=== PATIENT | female | born 1965 | race Caucasian/White ===

== ENCOUNTER 2022-08-12 14:18 | Outpatient (CLI) | payer BC, SELFPAY ==
--- NOTE | ~2022-08-12 | XR_ITS ---
EXAMINATION: XR hip RT min 2V DATE: 08/12/2022 14:37 INDICATION: Right knee pain. TECHNIQUE: 2 views of right hip were obtained. COMPARISON: None. FINDINGS: Bone alignment is normal. No fracture. Right hip joint space is normal. IMPRESSION: 1. Normal right hip. Reviewed, dictated and finalized at location A. IRER SASH AND DOOR IMPRESSION: 1. Normal right hip.
--- NOTE | ~2022-08-12 | XR_ITS ---
EXAMINATION: XR hip LT min 2V DATE: 08/12/2022 14:37 INDICATION: Left hip pain. TECHNIQUE: 2 views of left hip were obtained. COMPARISON: None. FINDINGS: Bone alignment is normal. No fracture. There is mild left hip osteoarthritis. IMPRESSION: 1. Mild left hip osteoarthritis. Reviewed, dictated and finalized at location A. X RAY EQUIPMENT MECHANIC
== END 2022-08-12 14:19 ==
PROVIDERS: PCP Physician Assistant; Visit Provider Physician Assistant
DX: M16.12 Unilateral primary osteoarthritis, left hip (principal); M25.551 Pain in right hip
CPT/HCPCS: 73502

== ENCOUNTER 2023-06-03 08:32 | Outpatient (CLI) | payer BC, SELFPAY ==
--- NOTE | ~2023-06-03 | MR_ITS ---
MRI of the lumbar spine Clinical History: Radiculopathy, postlaminectomy syndrome Technique: Axial T2-weighted images, and sagittal T1-weighted, T2-weighted, and T2 fat-sat images wer e acquired. Following intravenous administration of 12 cc MultiHance gadolinium, T1-weighted fat-sat imaging was performed in the axial and sagittal planes. COMPARISON: 05/29/2008 Findings: There is no fracture or subluxation of the lumbar spine. Vertebral bodies maintain normal h eight and alignment. No suspicious bone marrow signal abnormality is seen. There are mild reactive ma rrow signal changes due to underlying degenerative disc disease, particularly at the L5-S1 region. At L1-L2, there is mild disc bulge with mild facet hypertrophy. No central canal stenosis or neural f oraminal narrowing. At L2-L3, there is minimal disc bulge with mild facet hypertrophy. No central canal stenosis or neura l foraminal narrowing. L3-L4, there is no significant disc bulge or herniation. There is moderate facet hypertrophy. No cent ral canal stenosis or neural foraminal narrowing. At L4-L5, there is mild diffuse disc bulge with moderate to advanced facet arthropathy. No central ca nal stenosis. There is mild to moderate right neural foraminal narrowing. Left neural foramen preserv ed. At L5-S1, there is degenerative disc narrowing with minimal disc bulge and moderate facet arthropathy . No central canal stenosis. There is mild to moderate right neural foraminal narrowing. Left neural foramen preserved. Paravertebral soft tissues are unremarkable. No suspicious postcontrast enhancement identified. Impression: Minimal degenerative spondylosis, as above. Reviewed, dictated and finalized at location M. OGICAL ENGINEER Impression: Minimal degenerative spondylosis, as above.
== END 2023-06-03 08:33 | disposition home or self-care (01) ==
PROVIDERS: PCP Physician Assistant
DX: M96.1 Postlaminectomy syndrome, not elsewhere classified (principal); F11.20 Opioid dependence, uncomplicated; M47.27 Other spondylosis with radiculopathy, lumbosacral region; M47.26 Other spondylosis with radiculopathy, lumbar region; M70.61 Trochanteric bursitis, right hip
CPT/HCPCS: 72158; A9577

== ENCOUNTER 2023-06-07 11:31 | Emergency (ER) | payer BC, SELFPAY ==
[2023-06-07 11:54] VITALS: BP 134/77; PULSE 86; RESP 18; TEMP 36.5; O2SAT 99
[2023-06-07 14:00] VITALS: BP 130/79; PULSE 71; RESP 18; O2SAT 100
--- NOTE | 2023-06-07 14:09 | ED.EPISTAXIS ---
HPI - Epistaxis General Chief complaint: Epistaxis Stated complaint: Nosebleed Time Seen by Provider: 06/07/23 14:08 Source: patient Mode of arrival: ambulatory Limitations: no limitations History of Present Illness HPI Narrative: Elaina is a 58-year-old female patient presenting to the clinic today with complaints of bilateral epistaxis that began of 430 this morning. She reports that she has had a slight headache. Blood pressure is 134/77 with a heart rate of 86. Patient reports that she has been holding pressure and the being stop while she was in the waiting room today. She denies any history of anti coagulation issues. States she has had a lot of sinus pressure and congestion over the last week or 2. Related Data Allergies Allergy/AdvReac Type Severity Reaction Status Date / Time No Known Allergies Allergy Unverified 07/26/15 07:31 Review of Systems Review of Systems: Pertinent positives per HPI. Patient denies any fever, chills, rash, headache, visual changes, dizziness, cough, runny nose, sore throat, shortness of breath, chest pain, palpitations, nausea, vomiting, diarrhea, constipation, abdominal pain, or any urinary issues. PMFSH Comments At the time of my signature, I reviewed and agree with the nursing past medical, surgical, social, and family history. There is no relevant family history pertinent to the patient complaint. Exam Narrative: General: Well-developed, well nourished, in no apparent distress Head: Normocephalic, atraumatic Eyes: Pupils equally round and reactive to light bilaterally, EOM intact, sclera and conjunctive clear, no discharge, lids normal Ears: TMs intact and clear, ear canals clear, no drainage, grossly hearing normal. Nose: Nares patent, dry blood in bilateral nares, moderate inflammation, no sinus tenderness. No active bleeding while in the ED Mouth: Oropharynx without lesions or masses, good dentition, MMM. Neck: Supple, trachea midline, no enlargement of anterior or posterior cervical nodes, no thyroid masses or goiter palpable. Cardio: Regular rate and rhythm, s1 and s2 normal, no murmur appreciated. Resp: Clear to auscultation bilaterally anteriorly and posteriorly, no rhonchi, rales, wheezing or rubs Course Course Emergency Course: Portions of this record may have been created with voice recognition software. Vital Signs Vital signs: Vital Signs Temperature 36.5 C 06/07/23 11:54 Pulse Rate 86 06/07/23 11:54 Respiratory Rate 18 06/07/23 11:54 Blood Pressure 134/77 06/07/23 11:54 Pulse Oximetry 99 06/07/23 11:54 Temperature 36.5 C 06/07/23 11:54 Pulse Rate 71 06/07/23 14:00 Respiratory Rate 18 06/07/23 14:00 Blood Pressure 130/79 06/07/23 14:00 Pulse Oximetry 100 06/07/23 14:00 Vital signs reviewed MDM - Epistaxis MDM Narrative Medical decision making narrative: At the time of visit patient is resting on the exam table. Bleeding has resolved since the patient has been in the ER waiting room. John synephrine spray was used to bilateral nares. Zofran 4 mg ODT was given for nausea. Supportive measures were discussed with the patient she voiced understanding the discharge instructions and agrees to treatment plan. Return precautions reviewed Differential Diagnosis Differential diagnosis: Likely anterior epistaxis, posterior epistaxis and other (Sinus infection) Discharge Plan Discharge Clinical Impression: Epistaxis Patient Disposition: Home, Self-Care Condition: Stable Instructions: Antibiotic Form, Nosebleed (ED) Additional Instructions: John-Synephrine 1 sprain each nare was given in the ER May take Tylenol as needed for pain Avoid taking Motrin, Advil, or aspirin for the next 24 hours If bleeding restarts apply pressure to nares just below the nasal bridge for 15-20 If bleeding continues after the 15-20 minutes recommend coming into the ER for evaluation Use a cool-mist humidifier at th
[2023-06-07] MEDS: PHENYLEPHRINE 1% NA SPR (*BKC) 15 ML BTL 1 SPRAY NASAL (15:04)
[2023-06-07] MEDS: ONDANSETRON HCL ODT 4 MG TABLET PO (15:04)
[2023-06-07 15:43] VITALS: BP 128/86; PULSE 75; RESP 16; O2SAT 99
== END 2023-06-07 15:44 | disposition home or self-care (01) ==
PROVIDERS: Emergency Provider Nurse Practitioner Family; PCP Physician Assistant
DX: R04.0 Epistaxis (principal)
CPT/HCPCS: 99283; A9270

== ENCOUNTER 2023-08-19 00:34 | Day surgery (SDC) | payer BC, SELFPAY ==
[2023-08-03 15:15] VITALS: BMI 26.4
--- NOTE | 2023-08-17 11:22 | SUR.PREOP ---
Patient called regarding upcoming procedure. Voicemail left regarding appointment times.
--- NOTE | 2023-08-18 14:21 | PM.HPGS ---
History of Present Illness History of Present Illness Consent: Risks, benefits, and alternatives have been discussed and questions answered. Patient agrees to proceed with procedure. Chief complaint: Iron deficiency anemia unspecified Narrative: Elaina Nguyen is a 58 year old female Referred for investigation of iron deficiency anemia. Hemoglobin is 10.1 hematocrit 31. Iron and ferritin levels are low. her last colonoscopy was in 2016. She had a small polyp removed at that time. Also she has a family history of colon cancer in her father. Review of Systems Review of Systems: All systems reviewed & are unremarkable except as noted in HPI and below PMFSH Social History Social History Smoking status: Never smoker Alcohol use details: occasional Substance use type: does not use Living arrangements: with family Spiritual care concerns: No Meds Home Medications and Allergies Home Medications Medication Instructions Recorded Confirmed Type ascorbic acid (vitamin C) 500 mg 500 mg PO DAILY 08/03/23 08/19/23 History capsule duloxetine 60 mg capsule,delayed 60 mg PO BID 08/03/23 08/19/23 History release meloxicam 15 mg tablet 15 mg PO DAILY 08/03/23 08/19/23 History multivitamin with minerals-folic 1 tablet PO DAILY 08/03/23 08/19/23 History acid 0.4 mg tablet oxycodone-acetaminophen 7.5 mg-325 1 tablet PO TID PRN Pain 08/03/23 08/19/23 History mg tablet sodium,potassium,mag sulfates 17.5 See Rx Instructions PO .COMPLEX 08/03/23 08/19/23 Rx gram-3.13 gram-1.6 gram oral soln #354 mL (Suprep Bowel Prep Kit) Allergies Allergy/AdvReac Type Severity Reaction Status Date / Time No Known Allergies Allergy Verified 08/19/23 09:26 Exam Const: General: alert Orientation/consciousness: patient oriented x3 Resp: Auscultation: clear to auscultation bilaterally Cardio: Rhythm: regular rhythm GI: GI Palp: Yes Soft to palpation and No Tenderness to palpation present (GI) Neuro: General: patient oriented x3 Assessment and Plan Assessment and plan (1) Iron deficiency anemia: Code(s): D50.9 - Iron deficiency anemia, unspecified Status: Acute Assessment and Plan: EGD with possible biopsy or dilatation or cautery. Colonoscopy with possible biopsy or polypectomy or cautery or injection of substances.
[2023-08-19 09:29] VITALS: BP 170/66; PULSE 76; RESP 16; TEMP 36.4; O2SAT 97
[2023-08-19] MEDS: LACTATED RINGERS 1,000 ML 150 ML IV CONT (09:38)
--- NOTE | 2023-08-19 10:07 | P.PNAN_ITS ---
Anes - Initial Pre Proc Eval Procedure: Operation Date: 08/19/23 10:30 Proposed Procedures p Esophagogastroduodenoscopy & Colonoscopy - Randal Alston MD Date/Time: 08/19/23 10:07 Surgeon: Randal Alston MD Pre Op Diagnosis: Iron deficiency anemia unspecified Patient Data Age: 58 Gender: F Height: 1.52 m Weight: 59.8 kg Last Vital Signs Temp 97.6 F 08/19/23 09:29 Pulse 76 08/19/23 09:29 Resp 16 08/19/23 09:29 BP 170/66 H 08/19/23 09:29 Pulse Ox 97 08/19/23 09:29 O2 Del Method Room Air 08/19/23 09:29 Allergies Allergy/AdvReac Type Severity Reaction Status Date / Time No Known Allergies Allergy Verified 08/19/23 09:26 Home Medications Medication Instructions Recorded Confirmed Type ascorbic acid (vitamin C) 500 mg 500 mg PO DAILY 08/03/23 08/19/23 History capsule duloxetine 60 mg capsule,delayed 60 mg PO BID 08/03/23 08/19/23 History release meloxicam 15 mg tablet 15 mg PO DAILY 08/03/23 08/19/23 History multivitamin with minerals-folic 1 tablet PO DAILY 08/03/23 08/19/23 History acid 0.4 mg tablet oxycodone-acetaminophen 7.5 mg-325 1 tablet PO TID PRN Pain 08/03/23 08/19/23 History mg tablet sodium,potassium,mag sulfates 17.5 See Rx Instructions PO .COMPLEX 08/03/23 08/19/23 Rx gram-3.13 gram-1.6 gram oral soln #354 mL (Suprep Bowel Prep Kit) Patient hx anesthesia problems: none Family hx anesthesia problems: none Results Review: All pre-operative results and documents have been reviewed as part of the pre- operative evaluation. [facility] Social History Social History Smoking status: Never smoker Alcohol use details: occasional Substance use type: does not use Living arrangements: with family Spiritual care concerns: No Anes - Eval Final PreProcedure Day of Procedure 08/19/23 10:07 Patient weight: normal Heart: regular rate and rhythm Lungs: clear to auscultation Airway: Mallampati scale class II Neurological: alert and oriented Last oral intake: >/= 8 hours ASA classification: II Emergent: no Anesthetic plan: proceed Anesthesia type and monitoring: general GIVS and standard monitoring Results Review: All pre-operative results and documents have been reviewed as part of the pre- operative evaluation. Informed Consent: The patient's anesthetic plan and its attendant risks and benefits were discussed with the patient/family/POA. Questions were solicited and answers provided to the satisfaction of the patient/family/POA.
--- NOTE | 2023-08-19 10:45 | SUR.OPER ---
EGD START 1021, END 1025 COLONOSCOPY START 1030, END 1043
[2023-08-19 10:47] VITALS: BP 136/73; PULSE 55; RESP 38; O2SAT 100
[2023-08-19 10:57] VITALS: BP 129/65; PULSE 58; RESP 24; O2SAT 100
[2023-08-19 11:07] VITALS: BP 129/56; PULSE 59; RESP 22; O2SAT 100
== END 2023-08-19 11:10 | disposition home or self-care (01) ==
PROVIDERS: PCP Physician Assistant; Visit Provider Internal Medicine Gastroenterology
PROC: 0DJ08ZZ Inspection of Upper Intestinal Tract, Via Natural or Artificial Opening Endoscopic (ICD-10-PCS; CPT 43235; principal; 2023-08-19 10:30)
DX: D50.9 Iron deficiency anemia, unspecified (principal); Z80.0 Family history of malignant neoplasm of digestive organs; Z86.010 Personal history of colon polyps
CPT/HCPCS: 45378; 43239; 88305; J2704; J7120

== ENCOUNTER 2024-06-09 16:13 | Outpatient (CLI) | payer BC, SELFPAY ==
--- NOTE | ~2024-06-09 | CT_ITS ---
EXAMINATION: CT sinus wo con DATE: 06/09/2024 16:30 INDICATION: Chronic sinusitis. TECHNIQUE: Computed tomography (CT) of the paranasal sinuses was performed without intravenous contra st. Iterative reconstruction technique was employed. The dose-length product was 322.78 mGy-cm. COMPARISON: Head CT 05/23/2015 FINDINGS: The frontal, ethmoid, sphenoid, and left maxillary sinuses are clear. There is mild mucosal thickening right maxillary sinus. There is leftward deviation of the nasal septum. The ostiomeatal u nits are patent. There is a Lindsey cell on the left. IMPRESSION: 1. Mild mucosal thickening in right maxillary sinus. 2. Leftward deviation of the nasal septum. Reviewed, dictated and finalized at location A. SD ANALYST
== END 2024-06-09 16:14 | disposition home or self-care (01) ==
PROVIDERS: PCP Physician Assistant; Visit Provider Physician Assistant
DX: J31.0 Chronic rhinitis (principal); J34.2 Deviated nasal septum; J34.89 Other specified disorders of nose and nasal sinuses
CPT/HCPCS: 70486

== ENCOUNTER 2024-08-17 12:17 | Outpatient (CLI) | payer BC, SELFPAY ==
--- NOTE | ~2024-08-17 | MM_ITS ---
EXAMINATION: MM screening lesvia BI w mecca HISTORY: Screening TECHNIQUE: Craniocaudal and mediolateral oblique 3-D tomosynthesis images were obtained and synthetic 2-D images were generated. CAD analysis was submitted and interpreted. COMPARISON: Comparison to multiple prior studies sequentially, with oldest reviewed study dated 01/29. BREAST PARENCHYMAL COMPOSITION: Not dense: There are scattered areas of fibroglandular density. FINDINGS: There is no evidence of suspicious mass, calcification, or architectural distortion to sugg est malignancy in either breast. There has been no suspicious interval change. IMPRESSION: 1. No mammographic evidence of malignancy. 2. Recommend routine screening mammography in one year. BI-RADS Category 1: Negative Reviewed, dictated and finalized at location B. TARY TECHNOLOGY SPECIALIST
== END 2024-08-17 12:18 | disposition home or self-care (01) ==
LOC: MICIMG 12:18
PROVIDERS: PCP Physician Assistant; Visit Provider Physician Assistant
DX: Z12.31 Encounter for screening mammogram for malignant neoplasm of breast (principal)
CPT/HCPCS: 77063; 77067

== ENCOUNTER 2025-02-15 13:27 | Emergency (ER) | payer BC, SELFPAY ==
--- NOTE | ~2025-02-15 | CT_ITS ---
EXAMINATION: CT cervical spine wo con DATE: 02/15/2025 16:27 INDICATION: neck pain s/p fall TECHNIQUE: Computed tomography (CT) of the cervical spine was performed without intravenous contrast. Automated exposure control and iterative reconstruction technique were employed. The dose-length pro duct was 681.00 mGy-cm. COMPARISON: CT sinus 06/28. FINDINGS: Vertebral Body Alignment: Reversed lordosis centered at C5. Trace anterolistheses at C4-5 and C7-T1, presumably secondary to degenerative changes. Craniocervical and atlantoaxial alignment: Moderate degenerative change. Alignment intact. Osseous structures/fracture: No evidence of a lytic or blastic process in the visualized spine. No e vidence of acute fracture. Cervical soft tissues: The paraspinal soft tissues planes are maintained. Mild biapical pleural scarr ing. Degenerative changes: Multilevel degenerative disc disease and facet arthropathy. Severe right C5-6 n eural foraminal narrowing, secondary to degenerative changes. Severe bilateral C6-7 neural foraminal narrowing, secondary to degenerative changes. No severe central canal narrowing. IMPRESSION: No acute fracture or traumatic malalignment in the cervical spine. Reviewed, dictated and finalized at location K.
--- NOTE | ~2025-02-15 | CT_ITS ---
EXAMINATION: CT thoracic lumbar wo con DATE: 02/15/2025 16:31 CDT INDICATION: Fall. Back pain TECHNIQUE: Computed tomography (CT) of the lumbar spine and thoracic spine was performed without intr avenous contrast. The dose-length product was 681.00 mGy-cm. COMPARISON: None FINDINGS: Thoracic and lumbar vertebral body heights are within normal limits. No compression fracture identifi ed. Mild degenerative change scattered throughout the thoracic spine. Moderate joint space narrowing at the L5-S1 level. Mild levoconvex curvature of the lumbar spine. Reina luation of the spinal canal contents and bilateral neural foramen is limited due to CT technique. IMPRESSION: 1. No compression fracture identified in the thoracic or lumbar spine. 2. Mild degenerative change scattered throughout the thoracic spine. 3. Moderate joint space narrowing at L5-S1 level. Symptoms persist or worsen, consider an MRI for further assessment. Reviewed, dictated and finalized at location A.
--- NOTE | ~2025-02-15 | CT_ITS ---
EXAMINATION: CT brain wo con DATE: 02/15/2025 16:26 INDICATION: Fall. Pain. TECHNIQUE: Computed tomography (CT) of the head was performed 3 intravenous contrast. The dose-length product was 681.00 mGy-cm. COMPARISON: No prior studies for comparison. FINDINGS: Normal brain parenchymal volume for age. Normal fairchild-white differentiation. No acute intrac ranial hemorrhage, infarction, mass or mass effect. No ventriculomegaly or midline shift. Midline sagittal images demonstrate a normal corpus callosum, c raniovertebral junction and sella turcica. Basilar cisterns are patent. Paranasal sinuses and mastoids are pneumatized. No depressed skull fractures. IMPRESSION: 1. No acute intracranial abnormality. Reviewed, dictated and finalized at location A.
--- OUTSIDE RECORDS SUMMARY | 2025-02-15 13:30 | XMS_ITS | Encounter Summary ---
Author Organization [facility] Address [address] [place] [address] Care Team Providers Care Global Mobility Specialist Name Role Phone Unavailable Primary Care Provider Unavailabl e Encounter Details Date Type Department Care Team (Late st Contact Info) Description 12/11/2018 Abstract SFL CONVERSION [address] [place] [address] , Generic Conversion, Social History Tobacco Use Types Packs/Day Years Used Date Smoking Tobacco: Never Assessed Comments Unknown Sex and Gender Information Value Date Recorded Sex Assigned at Not on file Legal Sex Female 7:58 AM CDT Gender Identity Not on file Sexual Orientation Not on file documented as of this encounter Plan of Treatment Not on file documented as of this encounter Visit Diagnoses Not on filedocumented in this encounter
--- OUTSIDE RECORDS SUMMARY | 2025-02-15 13:30 | XMS_ITS | Encounter Summary ---
Author Organization [facility] Address [address] [place] [address] Care Team Providers Care Senior Ui Ux Designer Name Role Phone Fran Pathak MD Primary Care Provider Encounter Details Date Type Department Care Team (Latest Contact Info) Description 11/13/2008 Outpatient Historical [facility] Vicki Rosado MD NO ADDRESS ON FILE Displacement of Lumbar Intervertebral Disc without Myelopathy; Degeneration of Lumbar or Lumbosacral Intervertebral Disc Social History Tobacco Use Types Packs/Day Years Used Date Smoking Tobacco: Never Assessed Comments Unknown Sex and Gender Information Value Date Recorded Sex Assigned at Not on file Legal Sex Female 2:50 AM PRINCIPAL TRAINER Gender Identity Not on file Sexual Orientation Not on file documented as of this encounter Plan of Treatment Not on file documented as of this encounter Procedures Procedure Name Priority Date/Time Associated Diagnosis Comments XR LUMBAR SPINE 1 VW Routine 11/13/2008 10:55 AM CDT documented in this encounter Results * XR LUMBAR SPINE 1 VW (11/13/2008 10:55 AM CDT) Anatomical Region Laterality Modality Spine Other 11/13/2008 10:5 5 AM CDT Narrative 11/13/2008 11:41 AM CDT [address] [address] Admit Date: 11/13/2008 ELAINA NGUYEN Sex: F Admit Prov: VICKI ROSADO Date: 1965 Primary Care Prov: CMRN: [id number] [id number] Ordering Prov: N/A Accession Number: [id number] Interpretation Lumbar spine one view 11/13/2008. History: Lumbar disc displacement Findings: A single lateral view of the lumbar spine was obtained. Severe disc space narrowing at L5-S1 is visualized with mild facet hypertrophy. No acute fracture or subluxation is seen. Impression: Severe disc space narrowing at L5-S1. . Dictated by: JANE MALDONADO 11/13/2008 11:38 Electronically signed by: JANE MALDONADO 11/13/2008 11:39 Procedure Note Jane Johnson MD - 11/13/2008 [facility] [address], [place] [address] Admit Date: 11/13/2008 ELAINA NGUYEN Sex: F Admit Prov: VICKI ROSADO Date: 1965 Primary Care Prov: CMRN: [id number] [id number] [facility] Ordering Prov: N/A Interpretation Lumbar spine one view 11/13/2008. History: Lumbar disc displacement Findings: A single lateral view of the lumbar spine was obtained.Severe disc space narrowing at L5-S1 is visualized with mild facethypertrophy. No acute fracture or subluxation is seen. Impression: Severe disc space narrowing at L5-S1. . Dictated by: JANE MALDONADO 11/13/2008 11:38 Electronically signed by: JANE MALDONADO 11/13/2008 11:39 Vicki Rosado MD DIAGNOSTIC IMAGING ORDERABLES Final Result documented in this encounter Visit Diagnoses Diagnosis Displacement of lumbar intervertebral disc without myelopathy Degeneration of lumbar or lumbosacral intervertebral disc documented in this encounter Care Teams Senior Ui Ux Designer Relationship Specialty Start Date End Date Fran Pathak MD [address] [place] [address] [place] [address] PCP - General 09/10/09 documented as of this encounter
--- OUTSIDE RECORDS SUMMARY | 2025-02-15 13:30 | XMS_ITS | Clinical Summary ---
Author Organization [facility] Address [address] [place] [phone] Phone Care Team Providers Care Public Transportation Inspector Name Role Phone Fran Pathak MD Primary Care Provider Allergies No known active allergies Medications naproxen sodium (ALEVE) 220 mg Oral Tab Take 220 mg by mouth every 4 hours as needed. Active ibuprofen (MOTRIN) 600 mg Oral Tab Take 600 mg by mouth every 6 hours as needed for Pain. 1-2 tabs Active fexofenadine (LAITH) 60 mg Oral Tab Take 60 mg by mouth 1 time daily as needed. Active mometasone (NASONEX) 50 mcg/Actuation Both Nostril [place] Administer 2 Sprays in each nostril 1 time daily as needed. Active fluticasone (FLONASE) 50 mcg/Actuation Both Nostril SpSn Administer 2 Sprays in each nostril 1 time daily as needed. Active oxyCODONE-aceta minophen (PERCOCET) 7.5-325 mg Tablet TAKE 1 TABLET TWICE A DAY. 0 8 Active fentaNYL (DURAGESIC) 25 mcg/hr patch APPLY 1 PATCH TO SKIN EVERY 2ND DAY. 0 8 Active venlafaxine (EFFEXOR XR) 37.5 mg Extended Release 24 hour capsule 8 Active azithromycin (ZITHROMAX) 250 mg tablet 8 Active Active Problems Problem Noted Date Diagnosed Date Hematoma of breast 04/02/2018 Usual hyperplasia of lactiferous duct, right Duct ectasia of breast, right 03/23/2018 Abnormal mammogram of right breast 03/04/2018 Abnormal ultrasound of breast 03/04/2018 Lump of breast, right 03/04/2018 Family History Medical History Relation Name Comments Colon Cancer Father at 79 Relation Name Status Comments Father Social History Tobacco Use Types Packs/Day Years Used Date Smoking Tobacco: Never Smokeless Tobacco: Never Alcohol Use Standard Drinks/Week Comments Yes 0 (1 standard drink = 0.6 oz pur e alcohol) socially Comments No Sex and Gender Information Value Date Recorded Sex Assigned at Not on file Legal Sex Female 2:50 AM DIGITAL LEARNING PLATFORMS MANAGER Gender Identity Not on file Sexual Orientation Not on file Last Filed Vital Signs Vital Sign Reading Time Taken Comments Blood Pressure 133/96 02/03/2019 12:51 PM CDT Pulse 81 02/03/2019 12:51 PM CDT Temperature 37.1 C (98.7 F) 02/03/2019 12:51 PM CDT Respiratory Rate 16 04/17/2009 5:00 PM CDT Oxygen Saturation 97% 02/03/2019 12: 51 PM CDT Inhaled Oxygen Concentration - - Weight 59.4 kg (130 lb 14.4 oz) 019 12:51 PM CDT Height 152.4 cm (5') 02/03/2019 12:51 PM CDT Body Mass Index 25.56 02/03/2019 12:51 PM CDT Plan of Treatment Health Maintenance Due Date Last Done Comments DTAP/TDAP/TD VACCINES (1 - Tdap) 1983 HPV/Cotest (21-29) 1985 CERVICAL CANCER SCREENING 1994 HPV/Cotest (30-65) 1994 PAP SMEAR 1994 COLORECTAL SCREENING 2009 Colorectal Cancer Screening 2009 FIT-DNA Q 3 years 2009 FIT/FOBT Q 1 year 2009 Flex Sig/CT Colonography Q 5 years 2009 ZOSTER VACCINE (1 of 2) 2014 BREAST CANCER SCREENING 02/17/2019 02/18/20 18, 01/29/2018, 08/17/2014 INFLUENZA VACCINE (#1) 2025 05/10/2015 RSV VACCINE (60+ or ) (1 - 1-dose 75+ series) 2039 HEPATITIS B VACCINES Aged Out No long er eligible based on patient's age to complete this topic Procedures Procedure Name Priority Date/Time Associated Diagnosis Comments MAMMO DIAGNOSTIC UNI RIGHT W OR WO CAD Routine 02/17/2018 from Last 3 Months or Most Recently Relevant to Health Maintenance Results * MAMMO DIAGNOSTIC UNI RIGHT W OR WO CAD (02/17/2018) Anatomical Region Laterality Modality Breast Right Mammography us Abstract Provider MAMMO ORDERABLES Final Result from Last 3 Months or Most Recently Relevant to Health Maintenance Advance Directives For more information, please contact: [phone] Documents on File Type Date Recorded Patient Pediatric Ophthalmologist Expl anation Advance Directive POA 04/17/2009 Advance Directive Living Will 04/17/2009 * Full Code (Latest Code Status on File) Date Activated Date Inactivated Comments 04/17/2009 8:13 AM 04/17/2009 8:22 PM Care Teams Public Transportation Inspector Relationship Specialty Start Date End Date Fran Pathak MD [address] [place] [address] [place] [id number] PCP - General 09/10/09
--- OUTSIDE RECORDS SUMMARY | 2025-02-15 13:30 | XMS_ITS | Clinical Summary ---
Author Organization [facility] Address [address] [place] [address] Care Team Providers Care Grievance Coordinator Name Role Phone Unavailable Primary Care Provider Unavailabl e Social History Tobacco Use Types Packs/Day Years Used Date Smoking Tobacco: Never Assessed Comments Unknown Sex and Gender Information Value Date Recorded Sex Assigned at Not on file Legal Sex Female 7:58 AM CDT Gender Identity Not on file Sexual Orientation Not on file Last Filed Vital Signs Vital Sign Reading Time Taken Comments Blood Pressure 110/62 12/02/2013 1:29 PM CDT Pulse 76 12/02/2013 1:29 PM CDT Temperature - - Respiratory Rate - - Oxygen Saturation - - Inhaled Oxygen Concentration - - Weight 51.7 kg (114 lb) 12/02/2013 1:29 PM CDT Height 152.4 cm (5') 11/09/2012 10:31 AM CDT Body Mass Index 22.26 11/09/2012 10:31 AM CDT Plan of Treatment Health Maintenance Due Date Last Done Comments Cervical Cancer Screening Pa p Smear (Age 30 to 64) Every 3 Years 1964 Colorectal Cancer Screening Colonoscopy (10 Years) 1964 Annual Physical 1967 Hepatitis C 1982 Cervical Cancer Screening Pa p with HPV Testing (Age 30 to 64) Every 5 Years 1994 Cervical Cancer Screening with HPV 1994 Mammogram Screening 2004 DTaP, Tdap and Td Vaccines ( 1 - Tdap) 03/23/2012 03/22/2012 Pneumococcal Vaccine: 50+ Ye ars (1 of 1 - PCV) 2014 Zoster Vaccines (1 of 2) 2014 COVID-19 Vaccine ( - 2023-2 5 season) 2024 RSV Immunization or 60+ Years (1 - 1-dose 75+ series) 2039 Meningococcal B Vaccine Aged Out No l onger eligible based on patient's age to complete this topic Meningococcal Vaccine Aged Out No amarilys linda eligible based on patient's age to complete this topic RSV Immunizations Under 20 Months Aged Out No longer eligible based on patient's age to complete this topic
--- OUTSIDE RECORDS SUMMARY | 2025-02-15 13:30 | XMS_ITS | Encounter Summary ---
Author Organization [facility] Address 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 Gender Identity Not on file Sexual Orientation Not on file documented as of this encounter Plan of Treatment Not on file documented as of this encounter Procedures Procedure Name Priority Date/Time Associated Diagnosis Comments MRI LUMBAR W WO CONTRAST Routine 02/27/2009 3:23 PM CDT documented in this encounter Results * MRI LUMBAR W WO CONTRAST (02/27/2009 3:23 PM CDT) Anatomical Region Laterality Modality Spine Other 02/27/2009 3:23 PM CDT Narrative 02/28/2009 6:24 AM CDT [address] [address] Admit Date: 02/27/2009 ELAINA NGUYEN Sex: F Admit Prov: VICKI ROSADO Date: 1965 Primary Care Prov: CMRN: [id number] Room: [facility] SSN: [id number] IMAGING SERVICES Ordering Prov: N/A Accession Number: [id number] Interpretation MRI LUMBAR SPINE WITH AND WITHOUT IV CONTRAST, 02/27/2009 HISTORY: Postop. MRI of the lumbar spine was performed with routine postsurgical sequences, including weight-based gadolinium. The patient's prior preoperative study is dated 11/17/2008. Since the prior study, there has been right hemilaminectomy at L5-S1, with resection of a large disc herniation and there is now seen to be some mild enhancing granulation tissue without significant residual or recurrent disc herniation. There is mild displacement of the right S1 nerve root. No other definite change is seen. Vertebral bodies, stature and alignment, and stature are normal. There are again minimal degenerative changes without stenosis at L4-L5, no additional disc space disease is seen. The distal cord and conus are normal. There is no evidence of infection or collection. There is no evidence of arachnoiditis. IMPRESSION: Postoperative changes of right hemilaminectomy and disc resection at L5-S1 without significant residual or recurrent herniation. Mild enhancing granulation tissue. Minimal displacement of the right S1 nerve roots. No other significant change is seen. . Dictated by: SAMUEL NIÑO 02/27/2009 16:23 Electronically signed by: SAMUEL NIÑO 02/28/2009 06:22 Transcribed: 02/27/2009 23:06 [facility] Procedure Note Samuel Niño MD - 02/28/[address] [address] Admit Date: 02/27/2009 ELAINA NGUYEN Sex: F Admit Prov: VICKI ROSADO Date: 1965 Primary Care Prov: CMRN: [id number] [id number] Ordering Prov: N/A Interpretation MRI LUMBAR SPINE WITH AND WITHOUT IV CONTRAST, 02/27/2009 HISTORY: Postop. MRI of the lumbar spine was performed with routine postsurgicalsequences, including weight-based gadolinium. The patient's prior preoperativestudy is dated 11/17/2008. Since the prior study, there has been right hemilaminectomy at L5-S1,with resection of a large disc herniation and there is now seen to be somemild enhancing granulation tissue without significant residual orrecurrent disc herniation. There is mild displacement of the right S1 nerve root. No other definite change is seen. Vertebral bodies, stature and alignment, and stature are normal.There are again minimal degenerative changes without stenosis at L4-L5, noadditional disc space disease is seen. The distal cord and conus are normal.There is no evidence of infection or collection. There is no evidence of arachnoiditis. IMPRESSION: Postoperative changes of right hemilaminectomy and disc resection atL5-S1 without significant residual or recurrent herniation. Mild enhancing granulation tissue. Minimal displacement of the rightS1 nerve roots. No other significant change is seen. . Dictated by: SAMUEL NIÑO 02/27/2009 16:23 Electronically signed by: SAMUEL NIÑO 02/28/2009 06:22 Transcribed: 02/27/2009 23:06 [facility] Vicki Rosado MD MR ORDERABLES Final Result documented in this encounter Visit Diagnoses Diagnosis Displacement of lumbar intervertebral disc without myelopathy documented in this encounter Care Teams Fitting Room Maintenance Mechanic Relationship Specialty Start Date End Date Fran Pathak MD [address] [place] [address] [place] [address] PCP - General 09/10/09 documented as of this encounter
--- OUTSIDE RECORDS SUMMARY | 2025-02-15 13:30 | XMS_ITS | Encounter Summary ---
Author Organization [facility] Address 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 Gender Identity Not on file Sexual Orientation Not on file documented as of this encounter Plan of Treatment Not on file documented as of this encounter Procedures Procedure Name Priority Date/Time Associated Diagnosis Comments HEMOGLOBIN AND HEMATOCRIT Routine 09/29/2006 4:15 AM CDT POC , URINE Routine 09/28/2006 11:00 AM CDT HEMOGLOBIN AND HEMATOCRIT Routine 09/28/2006 10:40 AM CDT documented in this encounter Results * (ABNORMAL) HEMOGLOBIN AND HEMATOCRIT (09/29/2006 4:15 AM CDT) HEMOGLOBIN 10.8(L) 11.8 - 14.8 g/dL INTERFACE SYSTEM HEMATOCRIT 31.7(L) 35.5 - 44.0 % INTERFACE SYSTEM 09/29/2006 4:15 AM CDT Hermes Levine MD HEMATOLOGY ORDERABLES Fidel kane Performing Organization Address [facility] Phone Number INTERFACE SYSTEM Refer to clinic/hospital department * POC , URINE (09/28/2006 11:00 AM CDT) , URINE POC Negative Negative INTERFACE SYSTEM 09/28/2006 11:0 0 AM CDT Hermes Levine MD POINT OF CARE TESTING Fidel kane Performing Organization Address [facility] Phone Number INTERFACE SYSTEM Refer to clinic/hospital department * HEMOGLOBIN AND HEMATOCRIT (09/28/2006 10:40 AM CDT) HEMOGLOBIN 13.0 11.8 - 14.8 g/dL INTERFACE SYSTEM HEMATOCRIT 38.2 35.5 - 44.0 % INTERFACE SYSTEM 09/28/2006 10:4 0 AM CDT Hermes Levine MD HEMATOLOGY ORDERABLES Fidel kane Performing Organization Address [facility] Phone Number INTERFACE SYSTEM Refer to clinic/hospital department documented in this encounter Visit Diagnoses Diagnosis Lateral epicondylitis of elbow- Primary Lateral epicondylitis of elbow documented in this encounter Care Teams Marketing Content Specialist Relationship Specialty Start Date End Date Fran Pathak MD [address] [place] [address] [place] [address] PCP - General 09/10/09 documented as of this encounter
--- OUTSIDE RECORDS SUMMARY | 2025-02-15 13:30 | XMS_ITS | Encounter Summary ---
Author Organization [facility] Address 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 Gender Identity Not on file Sexual Orientation Not on file documented as of this encounter Plan of Treatment Not on file documented as of this encounter Procedures Procedure Name Priority Date/Time Associated Diagnosis Comments MRI LUMBAR WO CONTRAST Routine 11/17/2008 12:26 PM CDT documented in this encounter Results * MRI LUMBAR WO CONTRAST (11/17/2008 12:26 PM CDT) Anatomical Region Laterality Modality Spine Other 11/17/2008 12:2 6 PM CDT Narrative 11/17/2008 3:19 PM CDT [address] [address] Admit Date: 11/17/2008 ELAINA NGUYEN Sex: F Admit Prov: VICKI ROSADO Date: 1965 Primary Care Prov: CMRN: [id number] Room: [facility] SSN: [id number] IMAGING SERVICES Ordering Prov: N/A Accession Number: [id number] Interpretation MR IMAGING OF THE LUMBAR SPINE WITHOUT CONTRAST 11/17/08 History: Right leg pain Findings: Conus appears normal. Vertebrae have normal marrow signal intensity. L5-S1 level has a large central and right disc herniation. L4-L5 is without disc herniation or stenosis. L4 level is normal. L3-L4 shows no disc herniation or stenosis. L3 level is normal. L2-L3 is without disc herniation or stenosis. L2 level is normal. L1-2 is without disc herniation or stenosis. L1 level is normal. IMPRESSION: Large right L5-S1 disc herniation. . Dictated by: JOSEF MASTERSON 11/17/2008 12:47 Electronically signed by: JOSEF MASTERSON 11/17/2008 15:18 Transcribed: 11/17/2008 14:07 Procedure Note Josef Masterson MD - 11/17/[address] [address] Admit Date: 11/17/2008 ELAINA NGUYEN Sex: F Admit Prov: VICKI ROSADO Date: 1965 Primary Care Prov: CMRN: [id number] [id number] [facility] Ordering Prov: N/A Interpretation MR IMAGING OF THE LUMBAR SPINE WITHOUT CONTRAST 11/17/08 History: Right leg pain Findings: Conus appears normal. Vertebrae have normal marrow signal intensity.L5-S1 level has a large central and right disc herniation. L4-L5 is withoutdisc herniation or stenosis. L4 level is normal. L3-L4 shows no disc herniation or stenosis. L3 level is normal. L2-L3 is without disc herniation or stenosis. L2 level is normal. L1-2 is without disc herniation or stenosis. L1 level is normal. IMPRESSION: Large right L5-S1 disc herniation. . Dictated by: JOSEF MASTERSON 11/17/2008 12:47 Electronically signed by: JOSEF MASTERSON 11/17/2008 15:18 Transcribed: 11/17/2008 14:07 us Vicki Rosado MD MR ORDERABLES Final Result documented in this encounter Visit Diagnoses Diagnosis Displacement of lumbar intervertebral disc without myelopathy documented in this encounter Care Teams Preboarder Relationship Specialty Start Date End Date Fran Pathak MD [address] [place] [address] [place] [address] PCP - General 09/10/09 documented as of this encounter
[2025-02-15 13:37] VITALS: BP 90/62; PULSE 84; RESP 20; TEMP 36.8; O2SAT 92
--- NOTE | 2025-02-15 16:19 | ED_ITS ---
HPI - Head Injury General Chief complaint: Head Injury <Rebeca Foreman, FARM OR RANCH ANIMAL CARETAKER - Last Filed: 02/15/25 16:22> Stated complaint: FALL <Rebeca Foreman FARM OR RANCH ANIMAL CARETAKER - Last Filed: 02/15/25 16:22> Time Seen by Provider: 02/15/25 15:45 <Rebeca Newlyudmila FARM OR RANCH ANIMAL CARETAKER - Last Filed: 02/15/25 16:22> Focused HPI: Patient is a 59-year-old female who presents to the ER after sustaining a fall yesterday. She reports she was standing on a cooler when she fell backwards and hit the back of her head on a cement floor. Patient denies loss of consciousness, visual changes, or numbness/tingling. She does endorse one episode of emesis and photophobia last night. Patient endorses a history of degenerative disc disease, 2 back surgeries, and sees pain management. GENERAL: Well-appearing, well-nourished, and in no acute distress. HEAD: Normocephalic, atraumatic. CHEST: Clear to auscultation. ?No respiratory distress. HEART: Regular rate and rhythm.? NEURO: ?Alert and oriented x3. 1 cm linear laceration to the top/back of her occipital lobe. Bleeding controlled. Patient screened in triage and initial orders placed.? ?Additional care and disposition to be based upon?diagnostic testing and treatment. <Rebeca Newuble, FARM OR RANCH ANIMAL CARETAKER - Last Filed: 02/15/25 16:22> Focused HPI: Patient is a 59-year-old female who presents to the ER after sustaining a fall yesterday. She reports she was standing on a cooler when she fell backwards and hit the back of her head on a cement floor. Patient denies loss of consciousness, visual changes, or numbness/tingling. She does endorse one episode of emesis and photophobia last night. Patient endorses a history of degenerative disc disease, 2 back surgeries, and sees pain management. GENERAL: Well-appearing, well-nourished, and in no acute distress. HEAD: Normocephalic, atraumatic. CHEST: Clear to auscultation. ?No respiratory distress. HEART: Regular rate and rhythm.? NEURO: ?Alert and oriented x3. 1 cm linear laceration to the top/back of her occipital lobe. Bleeding controlled. Patient screened in triage and initial orders placed.? ?Additional care and disposition to be based upon?diagnostic testing and treatment. <Aaliyah Winkler PA-C - Last Filed: 02/15/25 18:17> Source: patient <Aaliyah Winkler PA-C - Last Filed: 02/15/25 18:17> Mode of arrival: ambulatory <Aaliyah Winkler PA-C - Last Filed: 02/15/25 18:17> Limitations: no limitations <Aaliyah Winkler PA-C - Last Filed: 02/15/25 18:17> History of Present Illness HPI Narrative: Agree with above HPI. Denies significant other pain. Denies anticoagulation. <Aaliyah Winkler PA-C - Last Filed: 02/15/25 18:17> Related Data Home medications: Home Medications ?Medication ?Instructions ?Recorded ?Confirmed ?Last Taken ?Type ascorbic acid (vitamin C) 500 mg 500 mg PO DAILY 08/03/23 08/19/23 08/18/23 History capsule duloxetine 60 mg capsule,delayed 60 mg PO BID 08/03/23 08/19/23 08/18/23 History release meloxicam 15 mg tablet 15 mg PO DAILY 08/03/23 08/19/23 08/18/23 History multivitamin with minerals-folic 1 tablet PO DAILY 08/03/23 08/19/23 08/18/23 History acid 0.4 mg tablet oxycodone-acetaminophen 7.5 mg-325 1 tablet PO TID PRN Pain 08/03/23 08/19/23 08/19/23 07:00 History mg tablet <Rebeca Foreman APRN - Last Filed: 02/15/25 16:22> Allergies/Adverse reactions: Allergies Allergy/AdvReac Type Severity Reaction Status Date / Time No Known Allergies Allergy Verified 08/19/23 09:26 <Rebeca Foreman APRN - Last Filed: 02/15/25 16:22> Review of Systems Review of Systems: All systems reviewed & are unremarkable except as noted in HPI. <Aaliyah Winkler PA-C - Last Filed: 02/15/25 18:17> All systems reviewed & are unremarkable except as noted in HPI and below <Aaliyah Winkler PA-C - Last Filed: 02/15/25 18:17> PMFSH Social History Social History: Social History Smoking status: Never smoker Alcohol use details: occasional Substance use type: does not use Living arrangements: with family Spiritual care concerns: No <Rebeca Foreman, FARM OR RANCH ANIMAL CARETAKER - Last Filed: 02/15/25 16:22> Exam Narrative: GENERAL: Well appearing, well-nourished, non-toxic, in no acute distress. HEAD: Normocephalic. Small contusion to posterior scalp without active bleeding. Minimal tenderness. NECK: No significant midline spinal tenderness. RESPIRATORY: Airway patent, respirations nonlabored. Clear to auscultation bilaterally, no rales, rhonchi, wheezing. CARDIOVASCULAR: Regular rate and rhythm without murmurs, rubs, or gallops. MUSCULOSKELETAL: Moves all extremities. No gross deformities. No significant tenderness throughout T/L midline spine. SKIN: Warm, dry, normal color. NEURO: A&O X3. Speech clear. Cranial nerves II-XII grossly intact. Steady gait. No ataxic movements. No focal deficits PSYCHIATRIC: Appropriate mood and affect. Normal interaction. <Aaliyah Winkler PA-C - Last Filed: 02/15/25 18:17> Course Vital Signs Vital signs: Vital Signs Temperature 98.2 F 02/15/25 13:37 Pulse Rate 84 02/15/25 13:37 Respiratory Rate 20 02/15/25 13:37 Blood Pressure 90/62 L 02/15/25 13:37 Pulse Oximetry 92 02/15/25 13:37 Oxygen Delivery Room Air 02/15/25 13:37 Temperature 98.2 F 02/15/25 13:37 Pulse Rate 74 02/15/25 18:06 Respiratory Rate 16 02/15/25 18:06 Blood Pressure 146/87 H 02/15/25 18:06 Pulse Oximetry 99 02/15/25 18:06 Oxygen Delivery Room Air 02/15/25 13:37 <Rebeca Foreman, FARM OR RANCH ANIMAL CARETAKER - Last Filed: 02/15/25 16:22> Vital Signs Temperature 98.2 F 02/15/25 13:37 Pulse Rate 84 02/15/25 13:37 Respiratory Rate 20 02/15/25 13:37 Blood Pressure 90/62 L 02/15/25 13:37 Pulse Oximetry 92 02/15/25 13:37 Oxygen Delivery Room Air 02/15/25 13:37 Temperature 98.2 F 02/15/25 13:37 Pulse Rate 74 02/15/25 18:06 Respiratory Rate 16 02/15/25 18:06 Blood Pressure 146/87 H 02/15/25 18:06 Pulse Oximetry 99 02/15/25 18:06 Oxygen Delivery Room Air 02/15/25 13:37 <CHRISTOPHER Hunter Last Filed: 02/15/25 18:17> MDM - Head Injury MDM Narrative Medical decision making narrative: Patient presented to ED status post fall last night with head injury. Denies LOC. Patient neurologically intact. In no acute distress. Blood pressure was initially reported as slightly low upon arrival, however this was improved by the time of my evaluation. CT brain and cervical spine without traumatic findings. CT thoracic/lumbar spine also without acute fracture. Patient updated on imaging results, possibility of concussion. Discussed management of such. Feel she is safe for discharge home at this time. Given return precautions. Discharged stable condition. <CHRISTOPHER Hunter Last Filed: 02/15/25 18:17> Medical Records Attestation: I reviewed the patient's medical records. <CHRISTOPHER Hunter Last Filed: 02/15/25 18:17> Imaging Data Attestation: I personally reviewed and interpreted this imaging study as follows: <CHRISTOPHER Hunter Last Filed: 02/15/25 18:17> Radiologist's impression: ITS Impressions Head CT 02/15/25 16:28 IMPRESSION: 1. No acute intracranial abnormality. Cervical Spine CT 02/15/25 16:30 IMPRESSION: No acute fracture or traumatic malalignment in the cervical spine. Thoracic/Lumbar Spine CT 02/15/25 16:31 IMPRESSION: 1. No compression fracture identified in the thoracic or lumbar spine. 2. Mild degenerative change scattered throughout the thoracic spine. 3. Moderate joint space narrowing at L5-S1 level. Symptoms persist or worsen, consider an MRI for further assessment. <Aaliyah Winkler PA-C - Last Filed: 02/15/25 18:17> Discharge Plan Discharge Clinical Impression: Fall from ground level Closed head injury Qualifiers: Encounter type: initial encounter Qualified Code(s): S09.90XA - Unspecified injury of head, initial encounter <Rebeca Foreman APRN - Last Filed: 02/15/25 16:22> Patient Disposition: Home <Rebeca Foreman APRN - Last Filed: 02/15/25 16:22> Condition: Stable <Rebeca Foreman APRN - Last Filed: 02/15/25 16:22> Instructions: Antibiotic Form, Concussion (ED), Head Injury (ED) <Rebeca Foreman APRN - Last Filed: 02/15/25 16:22> Additional Instructions: Your imaging did not show any traumatic findings. Recommend ice to head, areas of pain. Recommend Tylenol/ibuprofen if needed for pain. Follow-up with your primary care doctor for further evaluation. Return to the ED for worsening or severe headaches, recurrent fall or injury, severe pain, losing consciousness, severe dizziness, vision changes, unable to keep down food or drink, numbness, or any other symptoms of concern. <Rebeca Foreman APRN - Last Filed: 02/15/25 16:22> Patient Language: Honduran <Rebeca Foreman APRN - Last Filed: 02/15/25 16:22> Prescriptions: No Action meloxicam 15 mg tablet 15 mg PO DAILY oxycodone-acetaminophen 7.5-325 mg tablet 1 tablet PO TID PRN (Reason: Pain) duloxetine 60 mg capsule,delayed release(DR/EC) 60 mg PO BID multivit with min-folic acid 0.4 mg Tablet 1 tablet PO DAILY ascorbic acid (vitamin C) 500 mg Capsule 500 mg PO DAILY sodium,potassium,mag sulfates [Suprep Bowel Prep Kit] 17.5-3.13-1.6 gram recon soln See Rx Instructions PO .COMPLEX Qty: 354 0RF Rx Instructions: FOLLOW DOCTORS WRITTEN INSTRUCTIONS <Rebeca Foreman APRN - Last Filed: 02/15/25 16:22> Follow-up/Referrals: Beronica,CHRISTOPHER Sanchez [Primary Care Provider] - <Rebeca Foreman APRN - Last Filed: 02/15/25 16:22> Time of Disposition: 17:33 <Rebeca Foreman APRN - Last Filed: 02/15/25 16:22> 17:33 <Aalyiah Winkler PA-C - Last Filed: 02/15/25 18:17>
--- OUTSIDE RECORDS SUMMARY | 2025-02-15 17:48 | XMS_ITS | Encounter Summary ---
Author Organization [facility] Address [address] [place] [address] Care Team Providers Care Instrument Calibrator Name Role Phone Fran Pathak MD Primary Care Provider [phone] Encounter Details Date Type Department Care Team (Latest Contact Info) Description 02/27/2009 Outpatient Historical [facility] IM[facility] Vicki Rosado MD NO ADDRESS ON FILE Displacement of Lumbar Intervertebral Disc without Myelopathy Social History Tobacco Use Types Packs/Day Years Used Date Smoking Tobacco: Never Assessed Comments Unknown Sex and Gender Information Value Date Recorded Sex Assigned at Not on file Legal Sex Female 2:50 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 Gender Identity Not on file Sexual Orientation [...] PM CDT Narrative 02/28/2009 6:24 AM CDT [address] [address] Admit Date: 02/27/2009 ELAINA NGUYEN Sex: F Admit Prov: VICKI ROSADO Date: 1965 Primary Care Prov: CMRN: [id number] Room: [facility] SSN: [id number] IMAGING SERVICES Ordering Prov: N/A Accession Number: [id number] Interpretation MRI LUMBAR SPINE WITH AND WITHOUT [...] SAMUEL NIÑO 02/28/2009 06:22 Transcribed: 02/27/2009 23:06 [facility] Procedure Note Samuel Niño MD - 02/28/[address] [address] Admit Date: 02/27/2009 ELAINA NGUYEN Sex: F Admit Prov: VICKI ROSADO Date: 1965 Primary Care Prov: CMRN: [id number] [id number] [facility] Ordering Prov: N/A Interpretation MRI [...] SAMUEL NIÑO 02/28/2009 06:22 Transcribed: 02/27/2009 23:06 [facility] Vicki Rosado MD MR ORDERABLES Final Result documented in this encounter Visit Diagnoses Diagnosis Displacement of lumbar intervertebral disc without myelopathy documented in this encounter Care Teams Instrument Calibrator Relationship Specialty Start Date End Date Fran Pathak MD [address] [place] [address] [place] [address] PCP - General 09/10/09 documented as of this encounter
--- OUTSIDE RECORDS SUMMARY | 2025-02-15 17:48 | XMS_ITS | Clinical Summary ---
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
--- OUTSIDE RECORDS SUMMARY | 2025-02-15 17:48 | XMS_ITS | Encounter Summary ---
Author Organization [facility] Address [address] [place] [address] Care Team Providers Care Chief Of Safety And Protection Name Role Phone Fran Pathak MD Primary Care Provider [phone] Encounter Details Date Type Department Care Team (Latest Contact Info) Description 11/13/2008 Outpatient Historical [facility] Vicki Rosado MD NO ADDRESS ON FILE Displacement of Lumbar Intervertebral Disc without Myelopathy; Degeneration of Lumbar or Lumbosacral Intervertebral Disc Social History Tobacco Use Types Packs/Day Years Used Date Smoking Tobacco: Never Assessed Comments Unknown Sex and Gender Information Value Date Recorded Sex Assigned at Not on file 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 History: [...] Procedure Note Jane Johnson MD - 11/13/2008 [facility] [address] [place], [place] [address] Admit Date: 11/13/2008 ELAINA NGUYEN Sex: F Admit Prov: VICKI ROSADO Date: 1965 Primary Care Prov: CMRN: [id number] [facility] [id number] IM[facility] SERVICES Ordering Prov: N/A Interpretation Lumbar [...] disc documented in this encounter Care Teams Chief Of Safety And Protection Relationship Specialty Start Date End Date Fran Pathak MD [address] [place] [address] [place] [address] PCP - General 09/10/09 documented as of this encounter
--- OUTSIDE RECORDS SUMMARY | 2025-02-15 17:48 | XMS_ITS | Encounter Summary ---
Author Organization [facility] Address 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 Gender Identity Not on file Sexual Orientation [...] HEMATOLOGY ORDERABLES Fidel kane Performing Organization Address [facility] Phone Number INTERFACE SYSTEM Refer to clinic/hospital department * POC , URINE (09/28/2006 11:00 AM CDT) , URINE POC Negative Negative INTERFACE SYSTEM 09/28/2006 11:0 0 AM CDT Hermes Levine MD POINT OF CARE TESTING Fidel kane Performing Organization Address [facility] Phone Number INTERFACE SYSTEM Refer to clinic/hospital department * HEMOGLOBIN AND HEMATOCRIT (09/28/2006 10:40 AM CDT) HEMOGLOBIN 13.0 11.8 - 14.8 g/dL INTERFACE SYSTEM HEMATOCRIT 38.2 35.5 - 44.0 % INTERFACE SYSTEM 09/28/2006 10:4 0 AM CDT Hermes Levine MD HEMATOLOGY ORDERABLES Fidel kane Performing Organization Address [facility] Phone Number INTERFACE SYSTEM Refer to clinic/hospital department documented in this encounter Visit Diagnoses Diagnosis Lateral epicondylitis of elbow- Primary Lateral epicondylitis of elbow documented in this encounter Care Teams Pet Trainer Relationship Specialty Start Date End Date Fran Pathak MD [address] [place] [address] [place] [address] PCP - General 09/10/09 documented as of this encounter
--- OUTSIDE RECORDS SUMMARY | 2025-02-15 17:48 | XMS_ITS | Encounter Summary ---
Author Organization [facility] Address [address] [place] [address] Care Team Providers Care Radiology Resident Name Role Phone Unavailable Primary Care Provider Unavailabl e Encounter Details Date Type Department Care Team (Late st Contact Info) Description 12/11/2018 Abstract SFL CONVERSION [address] [place] [address] , Generic Conversion, Social History [...]
--- OUTSIDE RECORDS SUMMARY | 2025-02-15 17:48 | XMS_ITS | Encounter Summary ---
Author Organization [facility] Address 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 Gender Identity Not on file Sexual Orientation [...] PM CDT Narrative 11/17/2008 3:19 PM CDT [address] [address] Admit Date: 11/17/2008 ELAINA NGUYEN Sex: F Admit Prov: VICKI ROSADO Date: 1965 Primary Care Prov: CMRN: [id number] Room: [facility] SSN: [id number] IMAGING SERVICES Ordering Prov: N/A Accession Number: [id number] Interpretation MR IMAGING OF THE LUMBAR SPINE [...] Procedure Note Josef Masterson MD - 11/17/[address] [address] Admit Date: 11/17/2008 ELAINA NGUYEN Sex: F Admit Prov: VICKI ROSADO Date: 1965 Primary Care Prov: CMRN: [id number] [id number] [facility] Ordering Prov: N/A Interpretation MR [...] myelopathy documented in this encounter Care Teams Insurance Legal Assistant Relationship Specialty Start Date End Date Fran Pathak MD [address] [place] [address] [place] [address] PCP - General 09/10/09 documented as of this encounter
--- OUTSIDE RECORDS SUMMARY | 2025-02-15 17:48 | XMS_ITS | Clinical Summary ---
Author Organization [facility] Address [address] [place] [address] Care Team Providers Care Sales Professional Bilingual Name Role Phone Unavailable Primary Care Provider [...]
[2025-02-15 18:02] VITALS: BP 146/87; PULSE 74; RESP 16; O2SAT 99
[2025-02-15 18:06] VITALS: BP 146/87; PULSE 74; RESP 16; O2SAT 99
== END 2025-02-15 18:07 | disposition home or self-care (01) ==
LOC: ANHED 17:47
PROVIDERS: Emergency Provider Physician Assistant; PCP Physician Assistant
DX: S09.90XA Unspecified injury of head, initial encounter (principal); W18.30XA Fall on same level, unspecified, initial encounter
CPT/HCPCS: 70450; 72125; 72128; 72131; 99284

== ENCOUNTER 2025-03-27 13:49 | Outpatient (CLI) | payer BC, SELFPAY ==
--- NOTE | ~2025-03-27 | XR_ITS ---
EXAMINATION: XR knee RT 3V, 03/27/2025 14:07 CDT HISTORY: primary OA COMPARISON: No comparisons available. Findings: No acute fracture or malalignment. No significant degenerative changes. Soft tissues unremarkable. Impression: No acute fracture or malalignment. Reviewed, dictated and finalized at location A. Impression: No acute fracture or malalignment.
--- NOTE | ~2025-03-27 | XR_ITS ---
EXAMINATION: XR knee LT 3V, 03/27/2025 14:07 CDT HISTORY: primary OA COMPARISON: No comparisons available. Findings: No acute fracture or malalignment. No significant degenerative changes. Soft tissues unremarkable. Impression: No acute fracture or malalignment. Reviewed, dictated and finalized at location A. Impression: No acute fracture or malalignment.
--- OUTSIDE RECORDS SUMMARY | 2025-03-27 14:15 | XMS_ITS | Encounter Summary ---
Author Organization [facility] Address 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 Gender Identity Not on file Sexual [...] HEMATOLOGY ORDERABLES Fidel kane Performing Organization Address [facility] Phone Number INTERFACE SYSTEM Refer to clinic/hospital department * POC , URINE (09/28/2006 11:00 AM CDT) , URINE POC Negative Negative INTERFACE SYSTEM 09/28/2006 11:0 0 AM CDT Hermes Levine MD POINT OF CARE TESTING Fidel kane Performing Organization Address [facility] Phone Number INTERFACE SYSTEM Refer to clinic/hospital department * HEMOGLOBIN AND HEMATOCRIT (09/28/2006 10:40 AM CDT) HEMOGLOBIN 13.0 11.8 - 14.8 g/dL INTERFACE SYSTEM HEMATOCRIT 38.2 35.5 - 44.0 % INTERFACE SYSTEM 09/28/2006 10:4 0 AM CDT Hermes Levine MD HEMATOLOGY ORDERABLES Fidel kane Performing Organization Address [facility] Phone Number INTERFACE SYSTEM Refer to clinic/hospital department documented in this encounter Visit Diagnoses Diagnosis Lateral epicondylitis of elbow- Primary Lateral epicondylitis of elbow documented in this encounter Care Teams Aircraft Log Clerk Relationship Specialty Start Date End Date Fran Pathak MD [address] [place] [address] [place] [address] PCP - General 09/10/09 documented as of this encounter
--- OUTSIDE RECORDS SUMMARY | 2025-03-27 14:15 | XMS_ITS | Encounter Summary ---
Author Organization [facility] Address [address] [place] [address] Care Team Providers Care Conventions Assistant Name Role Phone Unavailable Primary Care Provider Unavailabl e Encounter Details Date Type Department Care Team (Late st Contact Info) Description 12/11/2018 Abstract SFL CONVERSION [address] [place] [place] [address] , Generic Conversion, Social History [...]
--- OUTSIDE RECORDS SUMMARY | 2025-03-27 14:15 | XMS_ITS | Encounter Summary ---
Author Organization [facility] Address 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 Myelopathy; Degeneration of Lumbar or Lumbosacral Intervertebral Disc Social History Tobacco Use Types Packs/Day Years Used Date Smoking Tobacco: Never Assessed Comments Unknown Sex and Gender Information Value Date Recorded Sex Assigned at Not on file 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 History: [...] Procedure Note Jane Johnson MD - 11/13/2008 [facility] [address] [place], [place] [address] Admit Date: 11/13/2008 ELAINA NGUYEN Sex: F Admit Prov: VICKI ROSADO Date: 1965 Primary Care Prov: CMRN: [id number] [facility] [id number] [facility] Ordering Prov: N/A Interpretation Lumbar [...] disc documented in this encounter Care Teams Production Lead Relationship Specialty Start Date End Date Fran Pathak MD [address] [place] [address] [place] [address] PCP - General 09/10/09 documented as of this encounter
--- OUTSIDE RECORDS SUMMARY | 2025-03-27 14:15 | XMS_ITS | Encounter Summary ---
Author Organization [facility] Address 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 Gender Identity Not on file Sexual Orientation [...] PM CDT Narrative 11/17/2008 3:19 PM CDT [address] [address] Admit Date: 11/17/2008 ELAINA NGUYEN Sex: F Admit Prov: VICKI ROSADO Date: 1965 Primary Care Prov: CMRN: [id number] Room: [facility] SSN: [id number] IMAGING SERVICES Ordering Prov: N/A Accession Number: [id number] Interpretation MR IMAGING OF THE LUMBAR SPINE [...] Procedure Note Josef Masterson MD - 11/17/[address] [address] Admit Date: 11/17/2008 ELAINA NGUYEN Sex: F Admit Prov: VICKI ROSADO Date: 1965 Primary Care Prov: CMRN: [id number] [facility] [id number] [facility] Ordering Prov: N/A Interpretation MR [...] myelopathy documented in this encounter Care Teams Online Advertising Director Relationship Specialty Start Date End Date Fran Pathak MD [address] [place] [address] [place] [address] PCP - General 09/10/09 documented as of this encounter
--- OUTSIDE RECORDS SUMMARY | 2025-03-27 14:15 | XMS_ITS | Encounter Summary ---
Author Organization [facility] Address 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 Gender Identity Not on file Sexual Orientation [...] PM CDT Narrative 02/28/2009 6:24 AM CDT [address] [address] Admit Date: 02/27/2009 ELAINA NGUYEN Sex: F Admit Prov: VICKI ROSADO Date: 1965 Primary Care Prov: CMRN: [id number] Room: [facility] SSN: [id number] IMAGING SERVICES Ordering Prov: N/A Accession Number: [id number] Interpretation MRI LUMBAR SPINE WITH AND WITHOUT [...] SAMUEL NIÑO 02/28/2009 06:22 Transcribed: 02/27/2009 23:06 [facility] Procedure Note Samuel Niño MD - 02/28/[address] [address] Admit Date: 02/27/2009 ELAINA NGUYEN Sex: F Admit Prov: VICKI ROSADO Date: 1965 Primary Care Prov: CMRN: [id number] [facility] [id number] [facility] Ordering Prov: N/A Interpretation MRI [...] SAMUEL NIÑO 02/28/2009 06:22 Transcribed: 02/27/2009 23:06 [facility] Vicki Rosado MD MR ORDERABLES Final Result documented in this encounter Visit Diagnoses Diagnosis Displacement of lumbar intervertebral disc without myelopathy documented in this encounter Care Teams Jersey Knitter Relationship Specialty Start Date End Date Fran Pathak MD [address] [place] [address] [place] [address] PCP - General 09/10/09 documented as of this encounter
--- OUTSIDE RECORDS SUMMARY | 2025-03-27 14:15 | XMS_ITS | Clinical Summary ---
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
--- OUTSIDE RECORDS SUMMARY | 2025-03-27 14:15 | XMS_ITS | Clinical Summary ---
Author Organization [facility] Address [address] [place] [address] Care Team Providers Care Press Operator Automatic Name Role Phone Unavailable Primary Care Provider [...] Vaccines (1 of 2) 2014 COVID-19 Vaccine (1 - 2023-2 5 season) 2025 RSV Immunization or 60+ Years (1 - [...]
== END 2025-03-27 13:50 | disposition home or self-care (01) ==
PROVIDERS: PCP Physician Assistant
DX: M17.0 Bilateral primary osteoarthritis of knee (principal); M47.26 Other spondylosis with radiculopathy, lumbar region; M70.61 Trochanteric bursitis, right hip; Z79.891 Long term (current) use of opiate analgesic; M96.1 Postlaminectomy syndrome, not elsewhere classified
CPT/HCPCS: 73562